=== PATIENT | female | born 1960 | race Caucasian/White ===

== ENCOUNTER → 2017-02-11 | Outpatient (CLI) | payer OTHER ==
[~2017-02-11] MED LIST: LIDOCAINE 1%, 20ML ONE; TRIAMCINOLONE ACETONIDE 40 MG/ML, 1ML ONE
== END | disposition home or self-care (01) ==
LOC: RAD 08:19
PROVIDERS: ATTEND Orthopaedic Surgery
DX: M76.891 Other specified enthesopathies of right lower limb, excluding foot (principal); M16.11 Unilateral primary osteoarthritis, right hip; M85.661 Other cyst of bone, right lower leg
CPT/HCPCS: 73525; 73722; J3301; J3490